=== PATIENT | female | born 1955 | race African-American/Black ===

== ENCOUNTER 2020-03-29 10:16 | Outpatient (CLI) | payer BC, SELFPAY ==
--- NOTE | ~2020-03-29 | XR_ITS ---
XR chest 2V DATE: 03/29/2020 10:43 INDICATION: Chronic intermittent chest pain TECHNIQUE: PA and lateral views COMPARISON: None FINDINGS: There is prominent elevation of the left leaf of the diaphragm. There is associated mild ri ghtward shift of the heart mediastinum and atelectasis at the left lower lung. Heart size is not optimally evaluated because the left heart margin is obscured by the elevated diaph ragm. No hilar or mediastinal enlargement is evident. Degenerative spurring of the thoracic spine. Lap band is noted. IMPRESSION: Prominent elevation left leaf of diaphragm with associated atelectasis at the left lower lung LAP-BAND Reviewed, dictated and finalized at location A. IMPRESSION: Prominent elevation left leaf of diaphragm with associated atelecta sis at the left lower lung LAP-BAND
--- NOTE | 2020-03-29 10:43 | ECG_ITS ---
Measurements Intervals [place] Rate: 53 P: 72 HI: 143 QRS: 62 QRSD: 87 T: 72 QT: 415 QTc: 390 Interpretive Statements SINUS BRADYCARDIA BASELINE WANDER- AVL, AVF BORDERLINE ECG Electronically Signed On 03-29-2020 11:12:09 CDT by Wally Mosley D.O.
== END 2020-03-29 10:17 | disposition home or self-care (01) ==
LOC: ANHIMG 10:24
PROVIDERS: PCP Family Medicine; Visit Provider Physician Assistant
DX: R07.89 Other chest pain (principal); R94.31 Abnormal electrocardiogram [ECG] [EKG]
CPT/HCPCS: 71046; 93005

== ENCOUNTER 2020-09-04 14:40 | Emergency (ER) | payer BC, SELFPAY ==
--- NOTE | 2020-09-04 14:52 | ED.EAR ---
HPI - Ear Problem General Chief complaint: Ear Stated complaint: Foreign object in left ear Source: patient and RN notes reviewed Mode of arrival: ambulatory Limitations: no limitations History of Present Illness HPI Narrative: 64-year-old female presents to the [facility] stating that she has a hearing aid stuck in her left ear. States that she removed her hearing aid last night and there was a rubber piece missing. Unable to find the rubber piece. Related Data Home Medications Medication Instructions Recorded Confirmed famotidine 40 mg PO PRN PRN 09/04/20 09/04/20 losartan 50 mg PO DAILY 09/04/20 09/04/20 Allergies Allergy/AdvReac Type Severity Reaction Status Date / Time No Known Allergies Allergy Verified 09/04/20 14:51 Review of Systems Review of Systems: Narrative: CONSTITUTIONAL: Denies fever, chills, or sweats. EYES: Denies visual changes, redness, or discharge. ENT: Denies rhinorrhea, congestion, sore throat, or otalgia. CARDIOVASCULAR: Denies chest pain, palpitations, or edema. RESPIRATORY: Denies cough or dyspnea. GASTROINTESTINAL: Denies abdominal pain, nausea, vomiting, or diarrhea. GENITOURINARY: Denies dysuria or hematuria. SKIN: Denies rash or itching. MUSCULOSKELETAL: Denies back pain, joint pain, or myalgia. NEUROLOGIC: Denies headache, numbness, or weakness. PSYCHIATRIC: Denies anxiety or depression. All other systems reviewed are negative, except as documented in HPI. PMFSH Social History Social History Gender identity (if verbalized by the patient): Female Comments At the time of my signature, I reviewed and agree with the nursing past medical, surgical, social, and family history. There is no relevant family history pertinent to the patient complaint. Exam Narrative: Exam Narrative: GENERAL: This is a well-nourished, well-developed patient, in no apparent distress. HEAD: normocephalic, atraumatic. EYES: PERRL. Sclera clear/white. Vision is grossly intact. EARS: External ears normal, left auditory canals clear and without drainage, foreign body. Bilateral TMs normal without perforation. Hearing grossly intact. right ear canal large amounts of cerumen. Left ear no foreign body noted NOSE: External nose normal with no obvious nasal discharge, nares without redness, no rhinorrhea. THROAT: Mucous membranes moist, posterior pharynx clear. NECK: Neck supple, non-tender without lymphadenopathy, masses or thyromegaly. CARDIOVASCULAR: Regular rate and rhythm without murmurs, gallops, or rubs. RESPIRATORY: Clear to auscultation. Breath sounds equal bilaterally. No wheezes, rales, or rhonchi. GASTROINTESTINAL: Abdomen soft, non-tender, nondistended. Bowel sounds are active. SKIN: warm, intact with no suspicious lesions or rash, good texture and turgor. NEURO: awake, alert, and oriented to person, place and time. There were no obvious focal neurologic abnormalities. EXTREMITIES: No clubbing, cyanosis, or edema. No joint tenderness, effusion, or edema noted. BACK: Nontender without deformity or crepitance. No flank tenderness. Course Vital Signs Vital signs: Vital Signs Temperature 98.2 F 09/04/20 15:01 Pulse Rate 85 09/04/20 15:01 Respiratory Rate 16 09/04/20 15:01 Blood Pressure 149/84 H 09/04/20 15:01 Pulse Oximetry 98 09/04/20 15:01 Temperature 98.2 F 09/04/20 15:01 Pulse Rate 85 09/04/20 15:01 Respiratory Rate 16 09/04/20 15:01 Blood Pressure 149/84 H 09/04/20 15:01 Pulse Oximetry 98 09/04/20 15:01 Reviewed, discussed blood pressure with patient. On medications. States that she did take it this morning. Understood the importance of following up with her primary care provider and signs and symptoms to return or go directly to an emergency room. Procedures Ear Wax Removal Right Ear: Ear Wax Removal Date: 09/04/20 Ear Wax Removal Time: 15:15 Results: Re-examined: cerumen removed completely TM Examination: TM(s) intact, miguel
[2020-09-04 15:01] VITALS: BP 149/84; PULSE 85; RESP 16; TEMP 36.8; O2SAT 98
== END 2020-09-04 15:12 | disposition home or self-care (01) ==
PROVIDERS: Emergency Provider Nurse Practitioner; PCP Family Medicine
DX: H61.21 Impacted cerumen, right ear (principal); I10 Essential (primary) hypertension; K21.9 Gastro-esophageal reflux disease without esophagitis
CPT/HCPCS: 69210; 99202; G0463